=== PATIENT | female | born 1960 | race Caucasian/White ===

== ENCOUNTER 2017-04-15 14:26 | Emergency (ER) | payer BC ==
[2017-04-15] MEDS ORDERED: predniSONE TAB* 20 MG PO ONE (15:11)
--- NOTE | 2017-04-15 15:13 | ED ---
Allergic Reaction/Systemic - HPI Summary HPI Summary: 56F presents with allergic reaction today. She was at home when she got stung by a bee on her left shoulder. She states she felt that the area was itchy. She took a Benadryl and in the mean time she felt that her hands were itchy and swollen and she broke out in hives. She had a similar reaction years ago when she got bite and her hand swelled up. She denies any anaphylactic reaction at that time. She denies any chest pain, SOB, abdominal pain, difficulty swallowing, facial swelling, or n/v. - History of Current Complaint Chief Complaint: EDAllergicReaction Time Seen by Provider: 04/15/17 14:50 Pain Intensity: 0 - Allergies/Home Medications Allergies/Adverse Reactions: Allergies Allergy/AdvReac Type Severity Reaction Status Date / Time Aspirin [ASA] Allergy Nausea And Verified 04/15/17 15:16 Vomiting Bee Venom Allergy Swelling Verified 04/15/17 15:16 PMH/Surg Hx/FS Hx/Imm Hx Endocrine/Hematology History: Reports: Hx Diabetes Denies: Hx Anticoagulant Therapy Cardiovascular History: Reports: Hx Hypertension Infectious Disease History: No Infectious Disease History: Denies: Traveled Outside the [place] in Last 30 Days - Family History Known Family History: Positive: Hypertension - Social History Alcohol Use: Occasionally Substance Use Type: Reports: None Smoking Status (MU): Unknown if Ever Smoked Review of Systems Negative: Fever Negative: Chest Pain Negative: Shortness Of Breath Positive: Other - bee sting, rash resolved All Other Systems Reviewed And Are Negative: Yes Physical Exam Triage Information Reviewed: Yes Vital Signs On Initial Exam: Initial Vitals Temp Pulse BP Pulse Ox 99.2 F 72 163/87 98 04/15/17 14:55 04/15/17 14:55 04/15/17 14:55 04/15/17 14:55 Completion Of Physical Exam Limited Due To: Dementia Appearance: Positive: Well-Appearing Skin: Positive: Warm, Dry, Other - welt on left shoulder Head/Face: Positive: Normal Head/Face Inspection Eyes: Positive: Normal, Conjunctiva Clear Respiratory/Lung Sounds: Positive: Clear to Auscultation, Breath Sounds Present Cardiovascular: Positive: Normal, RRR Diagnostics - Vital Signs Vital Signs Temp Pulse Resp BP Pulse Ox 04/15/17 15:04 99.2 F 72 13 163/87 98 04/15/17 14:55 99.2 F 72 163/ 98 - Laboratory Lab Statement: Any lab studies that have been ordered have been reviewed, and results considered in the medical decision making process. Allergic Reaction Course/Dx - Course Course Of Treatment: 56F presents with allergic reaction today. She was at home when she got stung by a bee on her left shoulder. She states she felt that the area was itchy. She took a Benadryl and in the mean time she felt that her hands were itchy and swollen and she broke out in hives. She had a similar reaction years ago when she got bite and her hand swelled up. She denies any anaphylactic reaction at that time. She denies any chest pain, SOB, abdominal pain, difficulty swallowing, facial swelling, or n/v. on exam has one welt around bite, no hives. Lungs CTA. RRR. abdomen soft nontender. patient denies any symptoms currently. will add steriod to prevent further action and told to take bendaryl every 6 hours. patient wants to go home so will not observe for a period as symptoms have resolved. warned of signs to return for. patient understands and agrees with plan. - Diagnoses Differential Diagnosis/HQI/PQRI: Positive: Anaphylaxis, Local Allergic Reaction , Urticaria Provider Diagnoses: Allergic reaction Discharge - Discharge Plan Condition: Good Disposition: HOME Prescriptions: predniSONE TAB* [Deltasone TAB*] 40 mg PO DAILY #8 tab Patient Education Materials: Urticaria (ED) Referrals: Matilda Johnson MD [Primary Care Provider] - [facility] [place] [facility] [Outside] Additional Instructions: Take Benadryl every 6 hours for 24 hours Take steroid (two tablets) once a day for 4 days starting tomorrow Establish care with primary to follow up Return to ED if shortness of breath, chest pain, or if develop any new or worsening symptoms
[2017-04-15 15:39] VITALS: BP 184/99
== END 2017-04-15 15:38 | disposition home or self-care (01) ==
LOC: ED 14:26
DX: T63.441A Toxic effect of venom of bees, accidental (unintentional), initial encounter (principal); T78.40XA Allergy, unspecified, initial encounter; X58.XXXA Exposure to other specified factors, initial encounter; Y92.9 Unspecified place or not applicable
CPT/HCPCS: 99283; J7512

== ENCOUNTER 2021-04-14 21:49 | Observation (INO) ==
[2021-04-14] MEDS ORDERED: NS 0.9% 1000 ml BAG 1,000 ML IV ONE (23:29)
[2021-04-14] MEDS ORDERED: Ondansetron 4 mg VIAL 2 MG/ML 2 ml VIAL IV ONE (23:30)
[2021-04-14 23:31] LABS: ABS Monocytes 1.1 10^3/ul (0-0.8); ABS Neutrophils 14.8 10^3/ul (1.5-7.7); Eosinophil % 0.1 %; Hematocrit 43 % (35-47); Hemoglobin 14.9 g/dL (12.0-16.0); Lymphocyte % 6.1 %; Mean Corpuscular HGB Conc 34 g/dL (31-36); Mean Corpuscular Hemoglobin 31 pg (27-31); Mean Corpuscular Volume 89 fL (80-97); Mean Platelet Volume 8.9 fL (7.4-10.4); Platelet Count 273 10^3/uL (150-450); Red Blood Count 4.85 10^6 /uL (3.70-4.87); Red Cell Distribution Width 13 % (10-15)
[2021-04-14 23:47] LABS: Albumin 4.8 g/dL (3.2-5.2); Albumin/Globulin Ratio 1.5 (1-3); C Reactive Protein 1.35 mg/L (<8.01); Calcium 10.1 mg/dL (8.6-10.3); EGFR African American 63.3 (>60); EGFR Non-African American 52.3 (>60); Globulin 3.1 g/dL (2-4); Potassium 3.6 mmol/L (3.5-5.0); Total Bilirubin 0.5 mg/dL (0.2-1.0); Total Protein 7.9 g/dL (6.4-8.9)
[2021-04-14 23:49] LABS: Urine Appearance Turbid; Urine Bilirubin Negative (Negative); Urine Blood Negative (Negative); Urine Color Amber; Urine Glucose Negative (Negative); Urine Ketones Trace (Negative); Urine Nitrite Negative (Negative); Urine Protein Negative (Negative); Urine Specific Gravity 1.019 (1.002-1.030); Urine Urobilinogen Negative (Negative)
[2021-04-15] MEDS ORDERED: Iodixanol (CONTRAST) 320 MG/ML 100 ML SDV IV ONE (00:17)
[2021-04-15] MEDS ORDERED: Morphine 4 MG/ML VIAL (1 ml) IV ONE (00:59)
[2021-04-15] MEDS ORDERED: Piperacillin/Tazobac ADVAN 3.375 GM in NS 0.9% 100 ml BAG 100 ML IV ONE (01:48)
[2021-04-15] MEDS ORDERED: HYDROmorphone 1 MG/1 ML SYRINGE IV SLOW PU ONE (01:56)
[2021-04-15] MEDS ORDERED: HYDROmorphone 1 MG/1 ML SYRINGE IV SLOW PU PRN (02:02)
[2021-04-15] MEDS ORDERED: Ondansetron 4 mg VIAL 2 MG/ML 2 ml VIAL IV ONE (02:06)
[2021-04-15] MEDS: Ondansetron 4 mg VIAL 2 MG/ML 2 ml VIAL IV PRN ×3 (07:35→18:19)
[2021-04-15] MEDS: NS 0.9% 1000 ml BAG 1,000 ML IV SCH ×2 (07:36→18:15)
[2021-04-15] MEDS: Piperacillin/Tazobactam VIAL 3.375 GM in NS 0.9% 100 ml BAG 100 ML IVPB SCH ×3 (07:36→22:41)
[2021-04-15] MEDS ORDERED: Bupivacaine 0.25% EPI 200,000 30 ML SDV ONE (09:38)
[2021-04-15] MEDS ORDERED: Lidocaine 2% PF 5 ML VIAL ONE (11:15)
[2021-04-15] MEDS ORDERED: Propofol 10 MG/ML 20 ML BTL ONE (11:15)
[2021-04-15] MEDS ORDERED: Midazolam 2 mg/2 ml VIAL 1 mg/ml 2 ml VIAL (2 mg) ONE (11:15)
[2021-04-15] MEDS ORDERED: Rocuronium 50 mg VIAL 10 mg/ml 5 ml VIAL (50 mg) ONE (11:16)
[2021-04-15] MEDS ORDERED: fentaNYL 100 mcg/2 ml 50 MCG/ML VIAL ONE (11:16)
[2021-04-15] MEDS ORDERED: Ketamine HCL 50 mg/ml 10 ml VIAL (500 MG) ONE (11:21)
[2021-04-15] MEDS ORDERED: Ondansetron 4 mg VIAL 2 MG/ML 2 ml VIAL ONE ×2 (12:13→13:18)
[2021-04-15] MEDS ORDERED: Dexamethasone IV 4 MG/ML VIAL 1 ml VIAL ONE (12:13)
[2021-04-15] MEDS ORDERED: HYDROmorphone 1 MG/1 ML SYRINGE ONE (13:01)
[2021-04-15] MEDS ORDERED: Naloxone 0.4 mg VIAL 0.4 mg/ml 1 ml VIAL IV PRN (13:01)
[2021-04-15] MEDS: HYDROmorphone 1 MG/1 ML SYRINGE IV PRN ×4 (13:04→14:28)
[2021-04-16] MEDS: NS 0.9% 1000 ml BAG 1,000 ML IV SCH (03:21)
[2021-04-16] MEDS: Piperacillin/Tazobactam VIAL 3.375 GM in NS 0.9% 100 ml BAG 100 ML IVPB SCH (06:45)
[2021-04-16 07:23] VITALS: BP 169/83
[2021-04-18] MEDS ORDERED: Scopolamine PATCH Remove NOTE PATCH OFF SCH (17:00)
== END 2021-04-16 10:20 | disposition home or self-care (01) ==
LOC: SSU 21:49 → ED 21:49 → SSU 04-15 05:01
PROVIDERS: ADMIT Surgery; ATTEND Surgery